=== PATIENT | female | born 1970 | race African-American/Black ===

== ENCOUNTER 2018-04-26 06:15 | Inpatient (IN) | payer SELFPAY ==
[2018-04-26] MEDS ORDERED: ASPIRIN 81 MG TABLET, CHEWABLE PO ONE (06:28)
--- NOTE | 2018-04-26 06:59 | RADIOLOGY REPORT (SQ) ---
Chest single view on 04/26/2018 at 6:42 AM CLINICAL INDICATION: Chest pain COMPARISON: None FINDINGS: The lungs are clear. Cardiac, hilar and mediastinal contours are within normal limits. Pulmonary vascularity is within normal limits. No bony abnormality is noted. IMPRESSION: No active disease.
[2018-04-26 07:03] LABS: HEMATOCRIT 41.5 % (36.0-47.0); HEMOGLOBIN 14.2 g/dL (12.0-15.5); MEAN CORPUSCULAR HEMOGLOBIN 32.3 pg (27.0-33.4); MEAN CORPUSCULAR HGB CONC 34.2 g/dL (32.0-36.0); MEAN CORPUSCULAR VOLUME 94 fl (80-97); PLATELET COUNT 221 10^3/uL (150-450); RED CELL DISTRIBUTION WIDTH 13.9 % (11.5-14.0); WHITE BLOOD COUNT 6.3 10^3/uL (4.0-10.5)
[2018-04-26] MEDS ORDERED: NORMAL SALINE 1000 ML 1,000 ML IV ONE ×2 (07:04→12:00)
[2018-04-26] MEDS ORDERED: ONDANSETRON HCL INJ/PF 4 MG/2 ML SDV IV ONE (07:04)
[2018-04-26] MEDS ORDERED: DIAZEPAM INJ 10 MG/2 ML DISP.SYRIN IV ONE ×4 (07:05→09:39)
[2018-04-26] MEDS ORDERED: LIDOCAINE 1% INJ-PF (10 MG/ML) 30 ML SDV NEB ONE (07:21)
[2018-04-26 07:43] LABS: ALANINE AMINOTRANSFERASE 74 U/L (9-52); ALBUMIN 4.8 g/dL (3.5-5.0); ALCOHOL 15 mg/dL (NONE DETECTED); ALKALINE PHOSPHATASE 79 U/L (38-126); ANION GAP 20 (5-19); ASPARTATE AMINO TRANSFERASE 168 U/L (14-36); BILIRUBIN,DIRECT 0.5 mg/dL (0.0-0.4); BLOOD UREA NITROGEN 7 mg/dL (7-20); CALCIUM 9.2 mg/dL (8.4-10.2); CARBON DIOXIDE 20 mmol/L (22-30); CHLORIDE 101 mmol/L (98-107); CREATINE KINASE 196 U/L (30-135); GLUCOSE 101 mg/dL (75-110); POTASSIUM 4.2 mmol/L (3.6-5.0); SODIUM 140.8 mmol/L (137-145); TOTAL PROTEIN 8.7 g/dL (6.3-8.2)
[2018-04-26 07:44] LABS: CREATINE KINASE MB 1.27 ng/mL (<4.55); TROPONIN I < 0.012 ng/mL
[2018-04-26 07:50] LABS: ABSOLUTE MONOCYTES # (MANUAL) 0.3 10^3/uL (0.1-1.4); BAND NEUTROPHILS % (MANUAL) 3 % (3-5); BASOPHILS % (MANUAL) 0 % (0-2); EOSINOPHILS % (MANUAL) 0 % (0-6); LYMPHOCYTES % (MANUAL) 15 % (13-45); MONOCYTES % (MANUAL) 5 % (3-13); SEGMENTED NEUTROPHILS % (MAN) 76 % (42-78); TOTAL CELLS COUNTED 100; TOXIC GRANULATION SLIGHT; TOXIC VACUOLATION PRESENT
[2018-04-26 07:51] LABS: HYPOCHROMASIA 1+; OVALOCYTES SLIGHT; POIKILOCYTOSIS SLIGHT; POLYCHROMASIA SLIGHT; SCHISTOCYTES SLIGHT
[2018-04-26 08:10] LABS: PLATELET COMMENT ADEQUATE
[2018-04-26 09:23] LABS: APPEARANCE,URINE SLIGHTLY-CLOUDY; BILIRUBIN,URINE NEGATIVE (NEGATIVE); COLOR,URINE YELLOW; GLUCOSE, URINE NEGATIVE (NEGATIVE); KETONES,URINE 20 mg/dL (NEGATIVE); LEUKOCYTE ESTERASE,URINE NEGATIVE (NEGATIVE); NITRITE,URINE NEGATIVE (NEGATIVE); PROTEIN,URINE 100 mg/dL (NEGATIVE); URINE SPECIFIC GRAVITY 1.023
[2018-04-26 09:45] LABS: URINE AMPHETAMINES SCREEN NEGATIVE; URINE BARBITURATES SCREEN NEGATIVE; URINE BENZODIAZEPINES SCREEN NEGATIVE; URINE COCAINE SCREEN NEGATIVE; URINE MARIJUANA (THC) SCREEN UNCONFIRMED POSITIVE; URINE METHADONE SCREEN NEGATIVE; URINE PHENCYCLIDINE SCREEN NEGATIVE
--- NOTE | 2018-04-26 09:51 | ER Document Report ---
ED General - General Chief Complaint: Alcohol Withdrawl Stated Complaint: ALCOHOL WITHDRAWAL Time Seen by Provider: 04/26/18 06:27 - HPI Patient complains to provider of: Alcohol withdrawal Notes: Patient coming in for alcohol withdrawal symptoms. Patient states normally drinks very heavily approximately a pint to a liter of hard liquor a day. Patient states he is been doing this for many years. Patient states she has had every weekend stop drinking had approximately half a beer earlier this morning because of her symptoms patient states feeling anxious nauseous. Patient states that she has not gone through any alcohol withdrawals before is that she has never tried to quit drinking alcohol. Patient otherwise is actively vomiting upon my evaluation tachycardic hypotensive. - Related Data Allergies/Adverse Reactions: Penicillins Allergy (Verified 04/26/18 06:26) Past Medical History - Social History Smoking Status: Current Every Day Smoker Frequency of alcohol use: Heavy Drug Abuse: Marijuana Family History: Reviewed & Not Pertinent Patient has suicidal ideation: No Patient has homicidal ideation: No Renal/ Medical History: Denies: Hx Peritoneal Dialysis Review of Systems - Review of Systems Constitutional: Other - Alcohol withdrawals EENT: No symptoms reported Cardiovascular: No symptoms reported Respiratory: No symptoms reported Gastrointestinal: Nausea Genitourinary: No symptoms reported Female Genitourinary: No symptoms reported Musculoskeletal: No symptoms reported Skin: No symptoms reported Hematologic/Lymphatic: No symptoms reported Neurological/Psychological: No symptoms reported -: Yes All other systems reviewed and negative Physical Exam - Vital signs Vitals: Resp BP 21 H 182/118 H 04/26/18 06:17 04/26/18 06:17 Interpretation: Hypertensive, Tachycardic - General General appearance: Appears well, Alert - HEENT Head: Normocephalic, Atraumatic Eyes: Normal Pupils: PERRL - Respiratory Respiratory status: No respiratory distress Chest status: Nontender Breath sounds: Normal Chest palpation: Normal - Cardiovascular Rhythm: Regular Heart sounds: Normal auscultation Murmur: No - Abdominal Inspection: Normal Distension: No distension Bowel sounds: Normal Tenderness: Nontender Organomegaly: No organomegaly - Back Back: Normal, Nontender - Extremities General upper extremity: Normal inspection, Nontender, Normal color, Normal ROM , Normal temperature General lower extremity: Normal inspection, Nontender, Normal color, Normal ROM , Normal temperature, Normal weight bearing. No: Aline's sign - Neurological Neuro grossly intact: Yes Cognition: Normal Orientation: AAOx4 [place] Coma Scale Eye Opening: Spontaneous [place] Coma Scale Verbal: Oriented Suni Coma Scale Motor: Obeys Commands Suni Coma Scale Total: 15 Speech: Normal Motor strength normal: LUE, RUE, LLE, RLE Sensory: Normal - Psychological Associated symptoms: Normal affect, Normal mood - Skin Skin Temperature: Warm Skin Moisture: Dry Skin Color: Normal Course - Re-evaluation Re-evalutation: 04/26/18 14:56 Patient presentation is concerning for active alcohol withdrawals at this time. No signs of seizure activity no signs of delirium tremens. Patient did have improvement of her heart rate and her vital signs after administration of Valium. Patient was also given Zofran. Patient is very adamant that she is going to stop drinking patient will be admitted to hospitalist service for alcohol withdrawal. - Vital Signs Vital signs: Temp Pulse Resp BP Pulse Ox 98.6 F 101 H 18 169/102 H 95 04/26/18 12:36 04/26/18 13:30 04/26/18 12:36 04/26/18 12:36 04/26/18 12:36 - Laboratory Result Diagrams: 04/26/18 06:20 04/26/18 06:20 Laboratory results interpreted by me: 04/26/18 04/26/18 06:20 09:00 Carbon Dioxide 20 L Anion Gap 20 H Direct Bilirubin 0.5 H AST 168 H ALT 74 H Creatine Kinase 196 H Total Protein 8.7 H Urine Protein 100 H Urine Ketones 20 H Urine Blood MODERATE H Urine Urobilinogen 2.0 H Critical Care Note - Critical Care Note Total time excluding time spent on procedures (mins): 35 Comments: Multiple evaluation patient with alcohol withdrawals tachycardia hypertension Discharge - Discharge Clinical Impression: Alcohol abuse Nausea & vomiting Qualifiers: Vomiting type: unspecified Vomiting Intractability: non-intractable Qualified Code(s): R11.2 - Nausea with vomiting, unspecified Alcohol withdrawal Qualifiers: Complication of substance-induced condition: uncomplicated Qualified Code(s): F10.230 - Alcohol dependence with withdrawal, uncomplicated Condition: Good Disposition: ADMITTED INPATIENT Admitting Provider: Vlad Barrios Unit Admitted: Telemetry
--- NOTE | 2018-04-26 10:33 | EKG REPORT ---
SEVERITY:- ABNORMAL ECG - SINUS TACHYCARDIA BIATRIAL ABNORMALITIES BORDERLINE R WAVE PROGRESSION, ANTERIOR LEADS : Confirmed by: Felicia Tafoya 26-Apr-2018 10:32:52
[2018-04-26] MEDS ORDERED: ACETAMINOPHEN 325 MG TABLET PO PRN (10:38)
[2018-04-26] MEDS ORDERED: MAGNESIUM HYDROXIDE SUSP 30 ML UDCUP PO PRN (10:45)
[2018-04-26] MEDS ORDERED: PROMETHAZINE HCL INJ 25 MG/1 ML VIAL IV PRN (10:45)
[2018-04-26] MEDS ORDERED: ONDANSETRON HCL INJ/PF 4 MG/2 ML SDV IV PRN (10:45)
[2018-04-26] MEDS ORDERED: MAG HYDROX/AL HYDROX/SIMETH SUSP 30 ML UDCUP PO PRN (10:45)
[2018-04-26] MEDS ORDERED: HYDRALAZINE HCL INJ/PF 20 MG/1 ML SDV IV PRN (10:53)
--- NOTE | 2018-04-26 11:14 | PDOC H&P ---
History of Present Illness Admission Date/PCP: 04/26/18 09:59 Patient complains of: Withdrawal symptoms History of Present Illness: MOISES MENDOZA is a 47 year old female with a past medical history significant for hypertension, tobacco use with continuous use, and EtOH dependence with continuous use who presented to the emergency department today with a complaint of alcohol withdrawal symptoms. The patient reports that she normally drinks 1 pint of vodka and a couple of beers daily. She stopped her normal alcohol intake intentionally on Thursday she reports she drank one half beer yesterday and attempt to moderate her withdrawal symptoms. She complains of; 2 days of malaise, fatigue, nausea, increased frequency of loose stools. She reports that her symptoms worsened overnight and on waking this morning reported generalized burning and tingling sensation, tachycardia, anxiety, nausea and vomiting. The patient states that she has never been through alcohol withdrawal before; no history of seizure disorder. Evaluation in the emergency room reveals tachycardia (HR 126), HTN (BP 182/118) , EKG demonstrating sinus tachycardia, benign chest x-ray, alcoholic anion gap acidosis, and mildly elevated LFTs. She is referred to the hospitalist service for admission and management of the above stated complaints. Past Medical History Cardiac Medical History: Reports: Hypertension Denies: Myocardial Infarction, Hyperlipidema Pulmonary Medical History: Reports: None EENT Medical History: Reports: None Neurological Medical History: Reports: None Endocrine Medical History: Reports: None Renal/ Medical History: Reports: None Malignancy Medical History: Reports: None GI Medical History: Reports: None Musculoskeltal Medical History: Reports: None Skin Medical History: Reports: None Psychiatric Medical History: Reports: Alcohol Dependency, Substance Abuse, Tobacco Dependency Traumatic Medical History: Reports: None Hematology: Reports: None Infectious Medical History: Reports: None Past Surgical History Past Surgical History: Reports: None Social History Information Source: Patient Lives with: Family Smoking Status: Current Every Day Smoker Cigarettes Packs Per Day: 1 Frequency of Alcohol Use: Heavy Amount of Alcoholic Beverages Per Day: 1 pint vodka daily Last Alcohol Use: 04/24/18 Hx Recreational Drug Use: Yes Drugs: Marijuana Hx Prescription Drug Abuse: No - Advance Directive Resuscitation Status: Full Code Surrogate healthcare decision maker:: The patient's , Tavares Mendoza, Family History Family History: None Parental Family History Reviewed: Yes Children Family History Reviewed: Yes Sibling(s) Family History Reviewed.: Yes Medication/Allergy Allergies/Adverse Reactions: Penicillins Allergy (Verified 04/26/18 06:26) Review of Systems Constitutional: PRESENT: anorexia, chills, headache(s), night sweats. ABSENT: fever(s), weight gain, weight loss Eyes: ABSENT: visual disturbances Ears: ABSENT: hearing changes Cardiovascular: PRESENT: palpitations. ABSENT: chest pain, dyspnea on exertion , edema, orthropnea Respiratory: ABSENT: cough, hemoptysis Gastrointestinal: PRESENT: diarrhea, nausea, vomiting. ABSENT: abdominal pain, constipation, hematemesis, hematochezia Genitourinary: ABSENT: dysuria, hematuria Musculoskeletal: ABSENT: joint swelling Integumentary: ABSENT: rash, wounds Neurological: PRESENT: tingling. ABSENT: abnormal gait, abnormal speech, confusion, dizziness, focal weakness, syncope Psychiatric: ABSENT: anxiety, depression, homidical ideation, suicidal ideation Endocrine: ABSENT: cold intolerance, heat intolerance, polydipsia, polyuria Hematologic/Lymphatic: ABSENT: easy bleeding, easy bruising Physical Exam Vital Signs: Temp Pulse Resp BP Pulse Ox 97.9 F 19 147/107 H 95 04/26/18 06:24 04/26/18 08:01 04/26/18 08:00 04/26/18 08:01 General appearance: PRESENT: cooperative, mild distress, thin, well-developed, well-nourished Head exam: PRESENT: atraumatic, normocephalic Eye exam: PRESENT: conjunctiva pink, EOMI, PERRLA. ABSENT: scleral icterus Ear exam: PRESENT: normal external ear exam Mouth exam: PRESENT: moist, tongue midline Neck exam: ABSENT: carotid bruit, JVD, lymphadenopathy, thyromegaly Respiratory exam: PRESENT: clear to auscultation marie, symmetrical, unlabored. ABSENT: rales, rhonchi, wheezes Cardiovascular exam: PRESENT: RRR, +S1, +S2, tachycardia. ABSENT: diastolic murmur, rubs, systolic murmur Pulses: PRESENT: normal dorsalis pedis pul Vascular exam: PRESENT: normal capillary refill GI/Abdominal exam: PRESENT: normal bowel sounds, soft. ABSENT: distended, guarding, mass, organolmegaly, rebound, tenderness Rectal exam: PRESENT: deferred Extremities exam: PRESENT: full ROM. ABSENT: calf tenderness, clubbing, pedal edema Neurological exam: PRESENT: alert, awake, oriented to person, oriented to place , oriented to time, oriented to situation, CN II-XII grossly intact. ABSENT: motor sensory deficit Psychiatric exam: PRESENT: appropriate affect, normal mood. ABSENT: homicidal ideation, suicidal ideation Skin exam: PRESENT: dry, intact, warm. ABSENT: cyanosis, rash Results Impressions: Chest X-Ray 04/26/18 06:28 IMPRESSION: No active disease. Assessment & Plan - Diagnosis (1) Alcohol withdrawal Qualifiers: Complication of substance-induced condition: uncomplicated Qualified Code(s ): F10.230 - Alcohol dependence with withdrawal, uncomplicated Is this a current diagnosis for this admission?: Yes Plan: The patient typically drinks 1 pint of vodka and 1-2 beers daily; last EtOH intake 04/25/18 (1 beer). She presents with EtOH withdrawal symptoms. Serum alcohol 15. UDS unconfirmed positive for THC. LFTs mildly elevated. Metabolic anion gap acidosis; likely secondary to alcohol. The patient is admitted to the medical floor on continuous cardiac telemetry. She will be provided IV fluids. Will begin with clear liquid diet and advance as tolerated. Scheduled Valium. As needed Ativan for withdrawal symptoms. Banana bag nightly. Discharge planning is consulted; appreciate their assistance. Fall, aspiration, seizure precautions. (2) HTN (hypertension) Is this a current diagnosis for this admission?: Yes Plan: Patient endorses a history of hypertension; states that she was previously on lisinopril/HCTZ. Now worsened secondary to acute alcohol withdrawal. Will start losartan 25 mg daily. IV hydralazine as needed for blood pressure control. Management of alcohol withdrawal as above. (3) Nausea & vomiting Qualifiers: Vomiting type: unspecified Vomiting Intractability: non-intractable Qualified Code(s): R11.2 - Nausea with vomiting, unspecified Is this a current diagnosis for this admission?: Yes Plan: Secondary to #1. Antiemetics as needed. Clear liquid diet; advance as tolerated. (4) Alcohol abuse Is this a current diagnosis for this admission?: Yes Plan: Management of #1 as above. Registered dietitian is consulted. Discharge planning and patient navigator consulted. Consider psychiatric consultation for evaluation for underlying mental health disorders. (5) Tobacco abuse Is this a current diagnosis for this admission?: Yes Plan: Patient endorses 1 pack daily tobacco use. Smoking cessation is encouraged. Nicotine replacement therapies are provided. - Time Time Spent: 50 to 70 Minutes Medications reviewed and adjusted accordingly: Yes Anticipated discharge: Home - Inpatient Certification Based on my medical assessment, after consideration of the patient's comorbidities, presenting symptoms, or acuity I expect that the services needed warrant INPATIENT care.: Yes I certify that my determination is in accordance with my understanding of Medicare's requirements for reasonable and necessary INPATIENT services [42 CFR 412.3e].: Yes Medical Necessity: Failure to Improve With Outpatient Therapy, Need Close Monitoring Due to Risk of Patient Decompensation, Need For IV Fluids, Need For Continuous Telemetry Monitoring, Risk of Complication if Not Cared For in Hospital
[2018-04-26] MEDS: NICOTINE 21 MG/24 HR PATCH.TD24 TD SCH (11:43)
[2018-04-26] MEDS: LOSARTAN POTASSIUM 25 MG TABLET PO SCH (11:43)
[2018-04-26] MEDS: LORAZEPAM INJ 2 MG/1 ML VIAL IV PRN ×2 (13:05→17:43)
[2018-04-26] MEDS: NORMAL SALINE 1000 ML 1,000 ML IV PRN (13:06)
[2018-04-26] MEDS: DIAZEPAM 5 MG TABLET PO SCH ×3 (13:51→23:50)
[2018-04-26] MEDS: HEPARIN SOD (PORCINE) 5,000 UNIT/ML 1 ML SYRINGE SUBCUT SCH ×2 (14:29→21:55)
[2018-04-26] MEDS: LANSOPRAZOLE 30 MG TAB.RAP.DR PO SCH (17:19)
[2018-04-26] MEDS: NORMAL SALINE 1000 ML 1,000 ML with POTASSIUM CHLORIDE 20 MEQ, MAGNESIUM SULFATE 8 MEQ,... IV SCH ×5 (17:19)
[2018-04-27 04:59] LABS: HEMATOCRIT 41.8 % (36.0-47.0); HEMOGLOBIN 14.3 g/dL (12.0-15.5); MEAN CORPUSCULAR HEMOGLOBIN 32.5 pg (27.0-33.4); MEAN CORPUSCULAR HGB CONC 34.2 g/dL (32.0-36.0); MEAN CORPUSCULAR VOLUME 95 fl (80-97); PLATELET COUNT 193 10^3/uL (150-450); RED CELL DISTRIBUTION WIDTH 13.8 % (11.5-14.0); WHITE BLOOD COUNT 5.2 10^3/uL (4.0-10.5)
[2018-04-27 05:37] LABS: ANION GAP 10 (5-19); BLOOD UREA NITROGEN 5 mg/dL (7-20); CALCIUM 8.8 mg/dL (8.4-10.2); CARBON DIOXIDE 28 mmol/L (22-30); CHLORIDE 104 mmol/L (98-107); GLUCOSE 119 mg/dL (75-110); POTASSIUM 4.3 mmol/L (3.6-5.0); SODIUM 142.3 mmol/L (137-145)
[2018-04-27] MEDS: LANSOPRAZOLE 30 MG TAB.RAP.DR PO SCH ×2 (05:59→17:34)
[2018-04-27] MEDS: HEPARIN SOD (PORCINE) 5,000 UNIT/ML 1 ML SYRINGE SUBCUT SCH ×3 (05:59→23:08)
[2018-04-27] MEDS: DIAZEPAM 5 MG TABLET PO SCH ×4 (05:59→23:08)
[2018-04-27] MEDS: NORMAL SALINE 1000 ML 1,000 ML IV PRN ×2 (06:00→13:28)
[2018-04-27] MEDS: NICOTINE 21 MG/24 HR PATCH.TD24 TD SCH (09:06)
[2018-04-27] MEDS: LOSARTAN POTASSIUM 25 MG TABLET PO SCH (09:06)
[2018-04-27] MEDS: IPRATROPIUM/ALBUTEROL 0.5-2.5 MG/3 ML AMPUL NEB PRN (09:48)
[2018-04-27] MEDS: LORAZEPAM 1 MG TABLET PO PRN ×2 (10:11→14:24)
--- NOTE | 2018-04-27 14:37 | PDOC PROGRESS REPORT ---
Subjective Progress Note for:: 04/27/18 Subjective:: No adverse events overnight. No new complaints. She says that the medication is making her feel "heavy." She has not had any tremulousness. She has been able to eat and rest. No hallucinations. Reason For Visit: ALCOHOL WITHDRAWAL Physical Exam Vital Signs: Temp Pulse Resp BP Pulse Ox 98.1 F 114 H 18 131/90 H 100 04/27/18 11:51 04/27/18 11:51 04/27/18 11:51 04/27/18 11:51 04/27/18 11:51 Intake & Output 04/26/18 04/27/18 04/28/18 06:59 06:59 06:59 Intake Total 2448 933 Balance 2448 933 Weight 62 kg General appearance: PRESENT: no acute distress, cooperative, well-developed, well-nourished Respiratory exam: PRESENT: clear to auscultation marie, unlabored. ABSENT: accessory muscle use, crackles, rales, rhonchi, tachypnea, wheezes Cardiovascular exam: PRESENT: RRR, +S1, +S2. ABSENT: diastolic murmur, systolic murmur GI/Abdominal exam: PRESENT: normal bowel sounds, soft. ABSENT: distended, guarding, rebound, tenderness Extremities exam: PRESENT: full ROM. ABSENT: joint swelling, pedal edema Musculoskeletal exam: PRESENT: ambulatory, full ROM, normal inspection. ABSENT : deformity Neurological exam: PRESENT: alert, awake, oriented to person, oriented to place , oriented to time, oriented to situation, normal gait Psychiatric exam: PRESENT: appropriate affect, normal mood Skin exam: PRESENT: dry, warm Results Laboratory Results: 04/27/18 04:28 04/27/18 04:28 04/27/18 04/27/18 04:28 04:28 WBC 5.2 RBC 4.40 Hgb 14.3 Hct 41.8 MCV 95 MCH 32.5 MCHC 34.2 RDW 13.8 Plt Count 193 Sodium 142.3 Potassium 4.3 Chloride 104 Carbon Dioxide 28 Anion Gap 10 BUN 5 L Creatinine 0.59 Est GFR ( Amer) > 60 Est GFR (Non-Af Amer) > 60 Glucose 119 H Calcium 8.8 04/26/18 13:22 Troponin I < 0.012 Impressions: Chest X-Ray 04/26/18 06:28 IMPRESSION: No active disease. Assessment & Plan - Diagnosis (1) Alcohol withdrawal Qualifiers: Complication of substance-induced condition: uncomplicated Qualified Code(s ): F10.230 - Alcohol dependence with withdrawal, uncomplicated Is this a current diagnosis for this admission?: Yes Plan: Doing well at this time, no sign of acute withdrawal symptoms. I will de- escalate her scheduled doses of Valium. Eventually hope to get her to as needed dosing only. She said her last drink was about 3 days ago. (2) Tobacco abuse Is this a current diagnosis for this admission?: Yes Plan: Currently on a nicotine patch. She wants to quit smoking also. (3) HTN (hypertension) Is this a current diagnosis for this admission?: Yes Plan: This has improved as her withdrawal symptoms have improved. Systolic and diastolic pressures trending down. We will continue to monitor to see if she needs blood pressure medication prior to discharge. - Time Time Spent with patient: 25-34 minutes
[2018-04-27] MEDS: NORMAL SALINE 1000 ML 1,000 ML with POTASSIUM CHLORIDE 20 MEQ, MAGNESIUM SULFATE 8 MEQ,... IV SCH ×5 (17:33)
[2018-04-27] MEDS: LORAZEPAM INJ 2 MG/1 ML VIAL IV PRN (23:13)
[2018-04-28] MEDS: LANSOPRAZOLE 30 MG TAB.RAP.DR PO SCH ×2 (06:46→17:27)
[2018-04-28] MEDS: HEPARIN SOD (PORCINE) 5,000 UNIT/ML 1 ML SYRINGE SUBCUT SCH ×3 (06:47→21:43)
[2018-04-28] MEDS: DIAZEPAM 5 MG TABLET PO SCH ×3 (06:47→17:27)
[2018-04-28] MEDS: IPRATROPIUM/ALBUTEROL 0.5-2.5 MG/3 ML AMPUL NEB PRN (09:24)
[2018-04-28] MEDS: NICOTINE 21 MG/24 HR PATCH.TD24 TD SCH (09:49)
[2018-04-28] MEDS: NORMAL SALINE 1000 ML 1,000 ML IV PRN (09:50)
[2018-04-28] MEDS: LOSARTAN POTASSIUM 25 MG TABLET PO SCH (09:50)
[2018-04-28] MEDS ORDERED: METOPROLOL TARTRATE PF/INJ 5 MG/5 ML SDV IV ONE ×2 (12:30→13:00)
[2018-04-28] MEDS: METOPROLOL TARTRATE 25 MG TABLET PO SCH ×2 (12:36→21:44)
[2018-04-28] MEDS: THIAMINE HCL 500 MG in NORMAL SALINE 250 ML IV SCH ×2 (14:48→21:44)
[2018-04-28] MEDS: MAGNESIUM SULFATE/D5W 1 GM/100 ML RTUPB IV SCH ×2 (17:26→18:42)
--- NOTE | 2018-04-28 20:17 | PROGRESS NOTE E ---
Progress Note NAME: MOISES MENDOZA : 1970 AGE: 47Y DATE: 04/28/2018 ROOM: 321 SUBJECTIVE: The patient is out of bed when seen on rounds. The patient was attempting to clean herself, as she stated that she had urinated on herself. The patient is awake and alert. Presents with near flights of ideas. She is definitely hypomanic, most likely in DT. There have been no reported episodes of vomiting nor diarrhea. The patient stated that the reason she urinated on herself was she coughed and that happened, which is not terribly uncommon for her. The patient feels better that she has a Depends on, and the patient does not voice any other specific concerns at this time, although she is a rambling historian. REVIEW OF SYSTEMS: The rest of the review of systems is negative. MEDICATIONS: Medications have been reviewed. OBJECTIVE: GENERAL: The patient is a 47-year-old -[place] female who is awake, alert, and oriented to person, place, time, and situation. She is verbal, conversational, and does not appear to be in any acute distress. VITAL SIGNS: Temperature 98.4, pulse 98, respirations 18, blood pressure 127/95, oxygen saturation 100% on room air. SKIN: Warm and dry. No rashes. Not diaphoretic. HEENT: Pupils equal, round, and reactive to light and accommodation. Conjunctivae pink. NECK: There is no evidence of JVP. CVS: Heart is regular, no rub. CHEST: Clear, symmetrical, unlabored. ABDOMEN: Soft, nontender. EXTREMITIES: No edema. PSYCHIATRIC: The patient appears to be in DTs. DIAGNOSTICS: Lab values are as follows: Hematology obtained on 04/27/2018: WBC 5.2, hemoglobin 14.3, hematocrit 41.8, platelet count 193,000. Chemistry obtained on 04/27/2018: Sodium 142, potassium 4.3, chloride 104, carbon dioxide 28, BUN 5, creatinine 0.59, glucose 119, A1c 4.9. Calcium 8.8, magnesium 1.5. ASSESSMENT AND PLAN: 1. Alcohol dependency, continuous, with subsequent delirium tremens. Will continue to hydrate. Will replace thiamine at high dose for 48 hours, and continue benzodiazepines as well as hydration and follow. 2. Hypomagnesemia. This is mild, but will replete given the patient's alcoholism. 3. Tobacco dependency, continuous. Will continue PRN nicotine patch. 4. Hypertension. Blood pressures have appeared to improve. Will continue Cozaar and will additionally add metoprolol. DISPOSITION: The patient is a full code. Depending on the patient's symptomatology and diagnostic findings, will reevaluate in the a.m. Time spent on this followup including assessment, plan, physical examination, patient education, and review of records is 25 minutes. DICTATING PHYSICIAN: SARAH MONROY NP [id number] PHY#: [id number] ID: [id number] JOB#: [id number] ACCT: [id number] cc: >
[2018-04-29] MEDS: DIAZEPAM 5 MG TABLET PO SCH ×2 (00:21→05:48)
[2018-04-29] MEDS: THIAMINE HCL 500 MG in NORMAL SALINE 250 ML IV SCH (05:48)
[2018-04-29] MEDS: HEPARIN SOD (PORCINE) 5,000 UNIT/ML 1 ML SYRINGE SUBCUT SCH (05:48)
[2018-04-29] MEDS: LANSOPRAZOLE 30 MG TAB.RAP.DR PO SCH (05:48)
[2018-04-29] MEDS ORDERED: IPRATROPIUM/ALBUTEROL 0.5-2.5 MG/3 ML AMPUL NEB PRN (06:20)
[2018-04-29] MEDS: NORMAL SALINE 1000 ML 1,000 ML IV PRN (06:41)
[2018-04-29] MEDS ORDERED: THIAMINE HCL 100 MG TABLET PO SCH (10:00)
[2018-04-29] MEDS ORDERED: FOLIC ACID 1 MG TABLET PO SCH (10:00)
[2018-04-29] MEDS: METOPROLOL TARTRATE 25 MG TABLET PO SCH (10:04)
[2018-04-29] MEDS: NICOTINE 21 MG/24 HR PATCH.TD24 TD SCH (10:05)
[2018-04-29] MEDS: LOSARTAN POTASSIUM 25 MG TABLET PO SCH (10:05)
[2018-04-29] MEDS ORDERED: ONDANSETRON HCL INJ/PF 4 MG/2 ML SDV IV PRN (11:00)
[2018-04-29] MEDS ORDERED: PROMETHAZINE HCL INJ 25 MG/1 ML VIAL IV PRN (11:00)
[2018-04-29 11:13] VITALS: BP 166/106
[2018-04-29] MEDS ORDERED: LANSOPRAZOLE 30 MG TAB.RAP.DR PO SCH (17:00)
--- NOTE | 2018-04-30 06:51 | DISCHARGE SUMMARY E ---
Discharge Summary NAME: MOISES MENDOZA : 1970 AGE: 47Y ADMITTED: 04/26/2018 DISCHARGED: 04/29/2018 CODE STATUS: FULL CODE. PRIMARY CARE PROVIDER: The patient will be referred to the [facility]. DISCHARGE DIAGNOSES: Includes: 1. Alcohol dependency, continuous. 2. Acute delirium tremor secondary to number 1. 3. Hypomagnesemia secondary to number 1, which has been replaced. 4. Tobacco dependency, continuous. 5. Hypertensive urgency due to uncontrolled essential hypertension. DISCHARGE MEDICATIONS: Include: 1. Valium 5 mg tablets, a half to 1 tablet p.o. q. 8 hours p.r.n. anxiety, 14 tablets, 0 refills. 2. Folic acid 1 mg p.o. daily, 30 tablets with 0 refills. 3. Cozaar 25 mg p.o. daily, 30 tablets with 0 refills. 4. Lopressor 25 mg p.o. q. 12 hours, 60 tablets with 0 refills. 5. Thiamine 100 mg p.o. daily, 30 tablets with 0 refills. DIET: As tolerated. ACTIVITY: As tolerated. CONDITION: Good. DIAGNOSTICS: Lab values are as follows: Hematology obtained on 04/27/2018: WBCs are 5.2, hemoglobin is 14.3, hematocrit is 41.8, platelet count is 193,000. Chemistry obtained on 04/27/2018: Sodium is 142, potassium 4.3, chloride is 104, carbon dioxide 28, BUN 5, creatinine is 0.59, glucose 119, A1C is 4.9, calcium is 8.8, magnesium is 1.5. Bilirubin is 1, AST 168, ALT is 74, Alk phos 79, CK 196, CK-MB is 1.27. Troponin is 0.012. Total protein 8.7, albumin 4.8, lipase is 238.2. Urinalysis obtained on 04/26/2018: Color yellow, appearance slightly cloudy. PH is 5.0, specific gravity is 1.023. Protein is 100. Glucose negative, ketones 20, occult blood moderate, nitrite negative, bilirubin negative, urobilinogen is 2.0. Leukocyte esterase is negative. WBCs 1, RBCs 15. Toxicology obtained on 04/26/2018: Marijuana is positive. Serum alcohol is 15. Chest x-ray obtained on 04/29/2018 reveals no active disease. EKG obtained on 04/26/2018 reveals sinus tachycardia. PHYSICAL EXAMINATION: GENERAL: On examination, the patient is a well-developed, well-nourished 47-year-old -[place]ian female who is awake, alert, and oriented to person, place, time, and situation. She is verbal, conversational, does not appear to be in any acute distress. VITAL SIGNS: Temperature is 97.5, pulse 108, respirations 16, blood pressure is 128/89, oxygen saturation is 100% on room air. SKIN: Warm and dry. No rash. Not diaphoretic. HEENT: Pupils equal, round, and reactive to light and accommodation. Conjunctiva is pink. There is no evidence of JVP. CARDIOVASCULAR SYSTEM: Heart is regular. There is no murmur or rub. CHEST: Clear, symmetrical, unlabored. ABDOMEN: Soft, nontender, nondistended. BACK: No CVA tenderness or sacral edema. EXTREMITIES: No clubbing, cyanosis, edema. PSYCHIATRIC: Appropriate affect, pleasant mood. HISTORY OF PRESENT ILLNESS: The patient is a 47-year-old -[place]enian female with a past medical history of alcohol dependency. The patient presented to the emergency department with a chief complaint of withdrawal symptoms. According to the patient, the patient normally drinks about a pint of vodka and a couple of beers a day. The patient stopped her normal alcohol intake intentionally on Thursday. She reports she drank a half a beer the day after that in an attempt to manage her withdrawal symptoms. The patient stated she had 2 days of malaise, fatigue, nausea, increased frequency of stools. The patient reported that her symptoms worsened overnight, and on waking the morning of presentation, she had generalized burning, tingling sensation, felt that her heart was racing. She had anxiety. The patient stated she had never been through alcohol withdrawal before, had no history of seizure. Upon presentation to the emergency department, the patient was found to be tachycardic with a heart rate of 126, hypertensive with a BP of 182/118, and EKG demonstrating sinus tachycardia, and alcoholic anion gap acidosis as well as mildly elevated LFTs. Given these findings, the patient was referred to the hospitalist for admission and management. HOSPITAL COURSE: The patient was admitted to continuous telemetry unit. The patient was given scheduled Valium and was tapered down from this. Additionally, the patient was given IV fluids and supportive therapy. The patient was started on 2 additional hypertensive agents, including losartan, but as well as due to the patient's persistent sinus tachycardia, which the patient states is a chronic issue for her. She was started on metoprolol, which she tolerated quite well. The patient was supplemented B vitamins and was actually given high dose of IV thiamine for which the patient did tolerate well. The patient stated that her symptoms felt of complete resolution and is quite eager for discharge. DISCHARGE PLANNING: The patient is advised to follow up and establish primary care at the [facility] within 1-2 weeks for hospital followup for hypertensive management. Time spent on this discharge including assessment, plan, physical examination, patient education, review of records is 25 minutes. DICTATING PHYSICIAN: SARAH MONROY NP [id number] PHY#: [id number] ID: [id number] JOB#: [id number] ACCT: [id number] cc:Griselda HERNANDEZ NP > MTDD
== END 2018-04-29 12:05 | disposition home or self-care (01) | DRG 897 ==
LOC: ER 06:15 → EH 09:59 → 3W 12:33
PROVIDERS: ADMIT Internal Medicine; ATTEND Internal Medicine
DX: F10.231 Alcohol dependence with withdrawal delirium (principal); E83.42 Hypomagnesemia; I16.0 Hypertensive urgency; Z79.899 Other long term (current) drug therapy; F17.210 Nicotine dependence, cigarettes, uncomplicated; Z88.0 Allergy status to penicillin
CPT/HCPCS: 36415; 71045; 80048; 80053; 80307; 81001; 82550; 82553; 83036; 83690; 83735; 84484; 85025; 85027; 93005; 93010; 94640; 96361; 96374; 96375; 99291; J0360; J1644; J2060; J2405; J2550; J3360; J3411; J3475; J3480; J3490; J7030; J7050; J7620

== ENCOUNTER 2019-06-05 06:11 | Emergency (ER) | payer SELFPAY ==
[2019-06-05] MEDS ORDERED: LORAZEPAM INJ 2 MG/1 ML VIAL IV ONE ×2 (06:59→15:46)
[2019-06-05] MEDS ORDERED: METOPROLOL TARTRATE PF/INJ 5 MG/5 ML SDV IV ONE ×2 (07:00→15:47)
[2019-06-05] MEDS ORDERED: NORMAL SALINE 1000 ML 1,000 ML with POTASSIUM CHLORIDE 20 MEQ, MAGNESIUM SULFATE 8 MEQ,... IV PRN ×5 (07:01)
--- NOTE | 2019-06-05 07:14 | ER Document Report ---
ED General - General Chief Complaint: Irregular Pulse Stated Complaint: CHEST PAINS Time Seen by Provider: 06/05/19 06:44 TRAVEL OUTSIDE OF THE [place] IN LAST 30 DAYS: No - HPI Notes: Ms. Christianson is a 48-year-old female presenting with a chief complaint of palpitations and tremulousness associated with alcohol withdrawal. The patient has a longstanding history of alcoholism with average consumption of greater than 1 pint of alcohol per day. She was hospitalized here for alcohol withdrawal symptoms about 1 year ago. She remained abstinent from alcohol thereafter for about 5 months. She is currently from her and is under considerable emotional stress from this and says this has been primary reason she is returned to drinking. Up until 3 days ago she was continuing to consume almost a pint a day. She decided it was "time to cut down" and cut herself back to less than half this alcohol intake. Since then she has had onset of withdrawal symptoms. She reports nausea without vomiting. Her primary complaint at this time is tachycardia, palpitations and tremulousness. She denies any auditory or visual hallucinations. She denies any suicidal or homicidal ideation. She says she occasionally smokes marijuana. She denies abuse of any other substances. The patient has a history of hypertension and was on a beta-be and an LI inhibitor when she was discharged from the hospital last year. She did not return to physician for follow-up and has not continued to take these medications. - Related Data Allergies/Adverse Reactions: mushroom Allergy (Verified 06/05/19 12:58) Penicillins Allergy (Verified 06/05/19 06:47) Past Medical History - General Information source: Patient, Relative - Social History Smoking Status: Current Every Day Smoker Cigarette use (# per day): Yes - Greater than 20 Frequency of alcohol use: Heavy Drug Abuse: Marijuana Lives with: Family Family History: Reviewed & Not Pertinent Patient has suicidal ideation: No Patient has homicidal ideation: No - Past Medical History Cardiac Medical History: Reports: Hx Hypertension Denies: Hx Heart Attack, Hx Hypercholesterolemia Endocrine Medical History: Denies: Hx Diabetes Mellitus Type 1, Hx Diabetes Mellitus Type 2 Renal/ Medical History: Reports: Other - Postmenopausal. Denies: Hx Peritoneal Dialysis Malignancy Medical History: Reports: None GI Medical History: Reports: Other - History of alcoholic hepatitis Other: History of alcoholic hepatitis Musculoskeletal Medical History: Reports None Surgical Hx: Negative Review of Systems - Review of Systems Notes: Constitutional: Negative for fever. HENT: Negative for sore throat. Eyes: Negative for visual changes. Cardiovascular: Negative for chest pain. Respiratory: Cough productive of small amounts of yellow sputum. Gastrointestinal: Negative for abdominal pain. Nausea without vomiting. Genitourinary: Negative for dysuria. Musculoskeletal: Negative for back pain. Skin: Negative for rash. Neurological: As per HPI. 10 point ROS negative except as marked above and in HPI. S Physical Exam - Vital signs Vitals: Temp Pulse Resp BP Pulse Ox 98.1 F 122 H 16 133/90 H 96 06/05/19 06:26 06/05/19 06:26 06/05/19 06:26 06/05/19 06:26 06/05/19 06:26 - Notes Notes: GENERAL: Well-developed well-nourished appearing anxious and tremulous with strong odor of alcohol present. SKIN: Good turgor no rashes. HEAD: Normocephalic atraumatic. EYES: PERRLA. EOMI. Conjunctivae and sclerae clear. EARS: CANALS AND TMS CLEAR. NOSE: CLEAR. MOUTH: Moist mucosa. Good dentition. No stridor or edema. No drooling. NECK: Supple. No masses or thyromegaly. No adenopathy. Carotids 2+ without bruits. No JVD. BACK: Symmetrical without tenderness. CHEST: Respirations unlabored. Slight rattling cough. Few scattered rhonchi bilaterally.. HEART: Tachycardic. Regular rhythm. No murmur gallop or rub. ABDOMEN: Soft nontender without masses, organomegaly or rebound. Bowel sounds normally active. No bruits. GENITALIA: Deferred. EXTREMITIES: No edema. No calf tenderness. Cap refill less than 1.5 seconds. Dorsalis pedis and posterior tibial pulses 3+ and symmetrical. NEUROLOGICAL: Very tremulous. GCS 15. Alert and oriented x3. Normal gait. Fluent speech. Cranial nerves II through XII intact. Sensorimotor and cerebellar normal. Normal tone. PSYCHIATRIC: Appropriate affect. Course - Re-evaluation Re-evalutation: 06/05/19 07:17 Patient is obviously having alcohol withdrawal syndrome. She is placed on monitoring analyst and will receive an IV banana bag. IV Ativan. IV beta-be. EKG is reviewed and is remarkable only for sinus tachycardia. We will obtain a chest x-ray. Other pending studies include blood alcohol level, urine drug screen, CBC with differential, lipase, comprehensive metabolic profile. 06/05/19 08:45 Recheck this time shows pulse rate of 92 and blood pressure of 125/78. Patient is very sedated from IV Ativan. She is no longer tremulous. Review of her labs shows that she has some elevation of her lipase and transaminases consistent with her chronic alcohol abuse. Her alcohol level is actually 298. Plan is to get a psych consult regarding detox. Provided her condition remains medically stable I think she can probably go to a detox facility as opposed to medical admission. We will continue to observe in the emergency department for the next several hours. 06/05/19 15:49 Patient was seen by mental health service. They concur that she is not suici bev, homicidal or hallucinating at this time. Patient is currently stating her preference to follow-up with an outpatient detox treatment program and they have made appropriate referrals for this. On my reevaluation she has a pulse rate at this time which is 110 and she is not experiencing any tremor. She is eating and drinking and has been up to the bathroom. I am going to give the patient another dose of benzodiazepine and beta-be. Her family is here to take her home and I would like to see her pulse rate under 100 before she is discharged. Recommendation of psychiatry service was that we start this lady on 50 mg of Librium twice daily. 06/05/19 15:51 - Vital Signs Vital signs: Temp Pulse Resp BP Pulse Ox 98.3 F 122 H 16 135/94 H 94 06/05/19 10:32 06/05/19 06:26 06/05/19 12:00 06/05/19 15:00 06/05/19 15:01 - Laboratory Result Diagrams: 06/05/19 06:51 06/05/19 06:51 Laboratory results interpreted by me: 06/05/19 06/05/19 06/05/19 06:51 06:51 13:53 RDW 14.2 H Glucose 155 H AST 348 H Lipase 352.4 H Urine Protein 30 H Urine Ketones 80 H Urine Urobilinogen 2.0 H Urine Ascorbic Acid 40 H - EKG Interpretation by Me Additional EKG results interpreted by me: 06/05/19 07:18 Twelve-lead EKG reviewed by me demonstrates sinus tachycardia and left atrial abnormality. Rate is 108. [place] is normal. There are no acute ST/T wave changes present. Discharge - Discharge Clinical Impression: Alcohol abuse, Alcoholic hepatitis Alcohol withdrawal Qualifiers: Complication of substance-induced condition: uncomplicated Qualified Code(s): F10.230 - Alcohol dependence with withdrawal, uncomplicated Disposition: HOME, SELF-CARE Prescriptions: Chlordiazepoxide HCl 50 mg PO BID 10 Days #20 capsule Metoprolol Succinate [Toprol Xl 50 mg Tab.sr] 50 mg PO DAILY #30 tab.sr.24h
[2019-06-05] MEDS ORDERED: NICOTINE 21 MG/24 HR PATCH.TD24 TD ONE (07:19)
[2019-06-05 07:21] LABS: ABSOLUTE MONOCYTES (AUTO) 0.3 10^3/uL (0.1-1.4); ABSOLUTE NEUT (AUTO) 3.4 10^3/uL (1.7-8.2); BASOPHILS % (AUTO) 0.6 % (0-2); EOSINOPHILS % (AUTO) 0.1 % (0-6); HEMATOCRIT 38.7 % (36.0-47.0); HEMOGLOBIN 13.3 g/dL (12.0-15.5); LYMPHOCYTES % (AUTO) 21.1 % (13-45); MEAN CORPUSCULAR HGB CONC 34.3 g/dL (32.0-36.0); MEAN CORPUSCULAR VOLUME 96 fl (80-97); MONOCYTES % (AUTO) 5.5 % (3-13); PLATELET COUNT 180 10^3/uL (150-450); RED BLOOD COUNT 4.03 10^6/uL (3.72-5.28); RED CELL DISTRIBUTION WIDTH 14.2 % (11.5-14.0); SEGMENTED NEUTROPHILS % (AUTO) 72.7 % (42-78); TOTAL CELLS COUNTED % (AUTO) 100 %; WHITE BLOOD COUNT 4.7 10^3/uL (4.0-10.5)
[2019-06-05 07:25] LABS: ALBUMIN 4.5 g/dL (3.5-5.0); ALCOHOL 294 mg/dL (NONE DETECTED); ALKALINE PHOSPHATASE 71 U/L (38-126); ANION GAP 16 (5-19); ASPARTATE AMINO TRANSFERASE 348 U/L (14-36); BILIRUBIN,DIRECT 0.4 mg/dL (0.0-0.4); BLOOD UREA NITROGEN 11 mg/dL (7-20); CALCIUM 8.9 mg/dL (8.4-10.2); CARBON DIOXIDE 22 mmol/L (22-30); CHLORIDE 106 mmol/L (98-107); GLUCOSE 155 mg/dL (75-110); POTASSIUM 3.8 mmol/L (3.6-5.0)
--- NOTE | 2019-06-05 07:44 | RADIOLOGY REPORT (SQ) ---
Chest single view on 06/05/2019 at 7:20 AM CLINICAL INDICATION: Cough COMPARISON: 04/26/2018 FINDINGS: The lungs are clear. Cardiac, hilar and mediastinal contours are within normal limits. Pulmonary vascularity is within normal limits. No bony abnormality is noted. IMPRESSION: No active disease.
[2019-06-05 08:23] LABS: VENOUS BLOOD BASE EXCESS -3.2 mmol/L; VENOUS BLOOD HCO3 22.6 mmol/L (20-32); VENOUS BLOOD PCO2 43.2 mmHg (35-63); VENOUS BLOOD PH 7.34 (7.30-7.42)
[2019-06-05 14:22] LABS: APPEARANCE,URINE SLIGHTLY-CLOUDY; BILIRUBIN,URINE NEGATIVE (NEGATIVE); COLOR,URINE YELLOW; GLUCOSE, URINE NEGATIVE (NEGATIVE); KETONES,URINE 80 mg/dL (NEGATIVE); PROTEIN,URINE 30 mg/dL (NEGATIVE)
[2019-06-05 14:37] LABS: URINE AMPHETAMINES SCREEN NEGATIVE; URINE BARBITURATES SCREEN NEGATIVE; URINE BENZODIAZEPINES SCREEN NEGATIVE; URINE COCAINE SCREEN NEGATIVE; URINE METHADONE SCREEN NEGATIVE; URINE PHENCYCLIDINE SCREEN NEGATIVE
[2019-06-05 14:38] LABS: URINE MARIJUANA (THC) SCREEN UNCONFIRMED POSITIVE
--- NOTE | 2019-06-05 14:45 | PSYCHOLOGICAL NOTE ---
Psych Note - Psych Note Date seen by psych provider: 06/05/19 Time seen by psych provider: 13:45 Psych Note: Reason for consult: ETOH Patient is a 48 year old female who presents to the ED via POV accompanied by her son and daughter in law. Patient reports a 20 year struggle with ETOH; including periods of blackouts from ETOH "years ago." Patient states she is has been "stressed" regarding her recent separation from her and began drinking. Patient reports drinking 1 beer on Thursday and a pint of liquor on Thursday. Patient stated she could not quit shaking, so she came to the ED. Patient's SCAR is 294. Patient's urine drug screen is positive for THC; patient reports marijuana use once per week. Patient reports depression and anxiety symptoms; no formal diagnosis. Patient denied previous mental health history. Patient denies a family history of mental health. Patient denies suicidal and homicidal ideations. Patient lives with her son and daughter in law, who are supportive of her recovery efforts. Patient is employed. Patient is alert and oriented to person, place, time and circumstance. Mood is normal with congruent affect. Patient denies suicidal and homicidal ideations. Delusions are absent and behavior is congruent with an intact reality based presentation (i.e.: organized and linear through processes). There is no observed behavior that suggests patient is responding to internal stimuli. Patient denies current auditory and visual hallucinations. Eye contact is appropriate. Conversational speech is within normal rate, tone, and prosody. Intellectual ability appears to be within average range. Attention and concentration are good. Insight, judgment and impulse control are currently fair. DSM Diagnosis: Alcohol Use Disorder; Severe Medication recommendations per [facility] contracted psychiatrist Dr. Yanira STEWART is as follows: Librium 50MG, twice per day as needed Impression/Plan: Patient is cleared from acute psychiatric services. Patient does not meet IVC criteria per [place] GS 122C. Patient denies suicidal and homicidal ideations. There is no observed behavior that suggests patient is responding to internal stimuli. Patient denies current auditory and visual hallucinations. Patient has a significiant ETOH history that is exasperated by recent separation from her . Patient has Dr. Manning was consulted on the care and management of this patient; attending physician is in agreement with recommendations and disposition.
--- NOTE | 2019-06-05 17:15 | EKG REPORT ---
SEVERITY:- BORDERLINE ECG - SINUS TACHYCARDIA PROBABLE LEFT ATRIAL ABNORMALITY : Confirmed by: Felicia Tafoya 05-Jun-2019 17:13:57
[2019-06-05] MEDS ORDERED: RINGERS SOLUTION,LACTATED 1,000 ML IV ONE (18:12)
[2019-06-05] MEDS ORDERED: LORAZEPAM 1 MG TABLET PO ONE (18:32)
[2019-06-05 22:06] VITALS: BP 149/98
[2019-06-05] MEDS ORDERED: METOPROLOL TARTRATE 50 MG TABLET PO ONE (22:27)
== END 2019-06-05 22:53 | disposition home or self-care (01) ==
LOC: ER 06:11
DX: F10.230 Alcohol dependence with withdrawal, uncomplicated (principal); Y90.8 Blood alcohol level of 240 mg/100 ml or more; K70.10 Alcoholic hepatitis without ascites; R82.4 Acetonuria; R00.2 Palpitations; R11.0 Nausea; R05 Cough; R00.0 Tachycardia, unspecified; R09.89 Other specified symptoms and signs involving the circulatory and respiratory systems; I10 Essential (primary) hypertension; F17.210 Nicotine dependence, cigarettes, uncomplicated; F12.10 Cannabis abuse, uncomplicated; Z63.5 Disruption of family by separation and divorce; Z91.018 Allergy to other foods; Z88.0 Allergy status to penicillin
CPT/HCPCS: 93005; 96376; 99285; 96361; 96375; 96365; 96366; 36415; 80307 ×2; 83690; 85025; 80053; 81001; 82803; 71045; 93010; J3475; J3490 ×2; J2060; J3480; J3411; J7030; J7120

== ENCOUNTER 2019-11-06 20:39 | Emergency (ER) | payer SELFPAY ==
[2019-11-06 21:09] LABS: INTERNATIONAL RATION (INR) 1.02; PROTHROMBIN TIME 13.4 SEC (11.4-15.4)
[2019-11-06 21:14] LABS: ALBUMIN 4.1 g/dL (3.5-5.0); ALKALINE PHOSPHATASE 65 U/L (38-126); ANION GAP 11 (5-19); ASPARTATE AMINO TRANSFERASE 147 U/L (14-36); BILIRUBIN,TOTAL 0.8 mg/dL (0.2-1.3); BLOOD UREA NITROGEN 4 mg/dL (7-20); CALCIUM 8.5 mg/dL (8.4-10.2); CARBON DIOXIDE 25 mmol/L (22-30); CHLORIDE 107 mmol/L (98-107); GLUCOSE 91 mg/dL (75-110); POTASSIUM 3.6 mmol/L (3.6-5.0); TOTAL PROTEIN 7.3 g/dL (6.3-8.2)
[2019-11-06 21:21] LABS: HEMATOCRIT 37.7 % (36.0-47.0); HEMOGLOBIN 13.1 g/dL (12.0-15.5); MEAN CORPUSCULAR HGB CONC 34.7 g/dL (32.0-36.0); MEAN CORPUSCULAR VOLUME 98 fl (80-97); PLATELET COUNT 138 10^3/uL (150-450); RED BLOOD COUNT 3.85 10^6/uL (3.72-5.28); RED CELL DISTRIBUTION WIDTH 13.6 % (11.5-14.0); WHITE BLOOD COUNT 4.8 10^3/uL (4.0-10.5)
[2019-11-06 21:52] LABS: ABSOLUTE LYMPHOCYTES# (MANUAL) 3.7 10^3/uL (0.5-4.7); ABSOLUTE MONOCYTES # (MANUAL) 0.4 10^3/uL (0.1-1.4); BASOPHILS % (MANUAL) 0 % (0-2); EOSINOPHILS % (MANUAL) 1 % (0-6); MONOCYTES % (MANUAL) 8 % (3-13); SEGMENTED NEUTROPHILS % (MAN) 14 % (42-78); TOTAL CELLS COUNTED 100
[2019-11-06 21:55] LABS: PLATELET COMMENT DECREASED
[2019-11-06 21:56] LABS: TARGET CELLS 1+
--- NOTE | 2019-11-06 21:56 | RADIOLOGY REPORT (SQ) ---
CLINICAL INDICATION: chest pain; tachycardia. TECHNIQUE: A single portable AP view was obtained of the chest at 2124 hours. COMPARISON: None. FINDINGS: The cardiomediastinal silhouette is normal. The lungs are grossly clear. No evidence of effusion or pneumothorax. The visualized bones are unremarkable. IMPRESSION: No evidence of active intrathoracic disease.
[2019-11-06 21:57] LABS: LYMPHOCYTES % (MANUAL) 76 % (13-45)
--- NOTE | 2019-11-07 00:56 | EKG REPORT ---
SEVERITY:- BORDERLINE ECG - SINUS RHYTHM PROBABLE LEFT ATRIAL ABNORMALITY : Confirmed by: Amanda Dunn MD 07-Nov-2019 00:56:07
--- NOTE | 2019-11-07 01:06 | ER Document Report ---
Entered by YESSENIA FLEMING SCRIBE 11/06/19 [id number] Acting as scribe for:JES DRIVER, DO ED General - General Chief Complaint: Palpitations Stated Complaint: HEART PALPITATIONS Time Seen by Provider: 11/06/19 21:17 Primary Care Provider: NATIVIDAD QUIROGA MD [ACTIVE PROVISIONAL STAFF] - 11/08/19 Information source: Patient Notes: This 48 year old female patient presents to the emergency department today with complaints of chest pain. Patient states x2 hours prior to arrival she felt pain in the left side of her chest that lasted for x1 hour. Patient described the pain as sharp and states it did not travel. Patient states she was laying down when her chest pain started. Patient states this has happened in the past but is not frequent. Patient states she did not have any shortness of breath during her chest pain and denies a fever. Patient states she has a bad cough but it is from her long history of smoking. Patient states she has stopped taking her medica tions because she does not have a primary care provider. TRAVEL OUTSIDE OF THE [place] IN LAST 30 DAYS: No - Related Data Allergies/Adverse Reactions: mushroom Allergy (Verified 06/05/19 12:58) Penicillins Allergy (Verified 06/05/19 06:47) Past Medical History - General Information source: Patient - Social History Smoking Status: Current Every Day Smoker Cigarette use (# per day): Yes Frequency of alcohol use: Heavy Family History: Reviewed & Not Pertinent Patient has homicidal ideation: No - Past Medical History Cardiac Medical History: Reports: Hx Hypertension Review of Systems - Review of Systems Constitutional: See HPI. denies: Fever EENT: No symptoms reported Cardiovascular: See HPI, Chest pain Respiratory: See HPI. denies: Short of breath Gastrointestinal: No symptoms reported Genitourinary: No symptoms reported Female Genitourinary: No symptoms reported Musculoskeletal: No symptoms reported Skin: No symptoms reported Hematologic/Lymphatic: No symptoms reported Neurological/Psychological: No symptoms reported -: Yes All other systems reviewed and negative Physical Exam - Vital signs Vitals: Resp 21 H 11/06/19 20:41 - General General appearance: Appears well, Alert - HEENT Head: Normocephalic, Atraumatic Eyes: Normal Pupils: PERRL - Respiratory Respiratory status: No respiratory distress Chest status: Nontender Breath sounds: Other - Slightly diminished breath sounds bilaterally. Chest palpation: Normal - Cardiovascular Rhythm: Tachycardia Heart sounds: Normal auscultation Murmur: No - Abdominal Inspection: Normal Distension: No distension Bowel sounds: Normal Tenderness: Nontender - Extremities General upper extremity: Normal inspection. No: Edema General lower extremity: Normal inspection. No: Edema - Neurological Neuro grossly intact: Yes Cognition: Normal Orientation: AAOx4 - Psychological Associated symptoms: Normal affect, Normal mood - Skin Skin Temperature: Warm Skin Moisture: Dry Skin Color: Normal Course - Re-evaluation Re-evalutation: 11/07/19 00:37 MDM 48 year old female with left sided chest pain at home watching tv earlier. Lasted perhaps an hour and no recurrence. No pain with activity. Looks like a copd pt. Workup here is reassuring and I feel she can safely follow up. - Vital Signs Vital signs: Temp Pulse Resp BP Pulse Ox 97.5 F 14 125/102 H 95 11/06/19 20:51 11/06/19 23:01 11/06/19 23:01 11/06/19 23:01 - Laboratory Result Diagrams: 11/06/19 20:46 11/06/19 20:46 Laboratory results interpreted by me: 11/06/19 11/06/19 20:46 20:46 MCV 98 H MCH 34.0 H Plt Count 138 L Seg Neuts % (Manual) 14 L Lymphocytes % (Manual) 76 H Abs Neuts (Manual) 0.7 L BUN 4 L Creatinine 0.44 L AST 147 H ALT 45 H - Diagnostic Test Radiology reviewed: Image reviewed, Reports reviewed - EKG Interpretation by Me EKG shows normal: Sinus rhythm Rate: Normal Rhythm: NSR - NSR Nl Jean [address] elevation or depression my interpretation. Discharge - Discharge Clinical Impression: Tobacco abuse, Palpitations HTN (hypertension) Qualifiers: Hypertension type: unspecified Qualified Code(s): I10 - Essential (primary) hypertension Condition: Stable Disposition: HOME, SELF-CARE Instructions: Chest Wall Pain ([facility]), Chest Pain of Unclear Cause ([facility]), Palpitations (Irregular or Rapid Heartrate) ([facility]) Additional Instructions: Call Dr. Quiroga in follow up. Stop smoking or at the very least cut down on your smoking. Please return here for any problems or any concerns including but not limited to chest pain or shortness of breath. Take 2 baby aspirin daily. Referrals: NATIVIDAD QUIROGA MD [ACTIVE PROVISIONAL STAFF] - 11/08/19 I personally performed the services described in the documentation, reviewed and edited the documentation which was dictated to the scribe in my presence, and it accurately records my words and actions.
[2019-11-07 01:21] VITALS: BP 132/110
[2019-11-08 13:32] LABS: PATH REVIEW PATHOLOGIST REVIEWED
== END 2019-11-07 01:21 | disposition home or self-care (01) ==
LOC: ER 20:39
DX: R00.2 Palpitations (principal); F17.210 Nicotine dependence, cigarettes, uncomplicated; I10 Essential (primary) hypertension; Z88.0 Allergy status to penicillin
CPT/HCPCS: 36415; 71045; 80053; 84484; 85025; 85610; 93005; 93010; 99285